=== PATIENT | female | born 1995 | race Caucasian/White ===

== ENCOUNTER 2016-06-10 22:11 | Emergency (ER) | payer OTHER ==
[2016-06-10 22:17] VITALS: BP 123/67
[2016-06-10] MEDS ORDERED: Acetaminophen 325 MG Tab PO ONE (22:28)
[2016-06-10] MEDS ORDERED: Ketorolac 60 MG/2 ML SDV IM ONE (22:28)
[2016-06-10] MEDS ORDERED: Ondansetron 4 MG Tab.DIS PO ONE (22:28)
--- NOTE | 2016-06-10 23:44 | EDM.PDOC ---
ED HPI GENERAL MEDICAL PROBLEM - General Chief Complaint: General Stated Complaint: concussion, headache, neck pain Time Seen by Provider: 06/10/16 22:27 Source of Information: Reports: Patient History Limitations: Reports: No limitations - History of Present Illness INITIAL COMMENTS - FREE TEXT/NARRATIVE: Fell at [address]200 [address] this AM. Hit the back of her head against pickup bed. No LOC. Has LARKIN and nausea No neuro changes. Onset: today, sudden Duration: Hour(s):, Constant Location: Reports: head Quality: Reports: Throbbing Severity: moderate Worsens with: Reports: Movement Associated Symptoms: Reports: headaches, nausea/vomiting Treatments VP PLATFORMS: Reports: NSAIDS Headache Pain Score (Numeric/FACES): 7 - Related Data Allergies Allergy/AdvReac Type Severity Reaction Status Date / Time Penicillins Allergy Hives Verified 06/10/16 22:26 Home Meds: Home Meds Ibuprofen 600 mg PO Q6H PRN 06/10/16 [History] ED ROS GENERAL - Review of Systems Review Of Systems: See Below Constitutional: Reports: no symptoms HEENT: Reports: Other (Pain in posterior scalp) Respiratory: Reports: No Symptoms Cardiovascular: Reports: No symptoms GI/Abdominal: Reports: Nausea, Vomiting Musculoskeletal: Reports: no symptoms Neurological: Reports: Headache ED EXAM, GENERAL - Physical Exam Exam: See Below Exam Limited By: No limitations General Appearance: alert, WD/WN, mild distress Ears: normal canal, normal TMs Throat/Mouth: Normal oropharynx Head: other (tender in posterior scalp) Neck: non-tender Respiratory/Chest: lungs clear Cardiovascular: regular rate, rhythm GI/Abdominal: non tender Extremities: normal inspection Neurological: alert, oriented, CN II-XII intact, no motor/sensory deficits Psychiatric: normal affect, normal mood Course - Vital Signs Last Recorded V/S: Last Vital Signs Temp 37.6 C 06/10/16 22:16 Pulse 106 H 06/10/16 22:16 Resp 18 06/10/16 22:16 BP 123/67 06/10/16 22:16 Pulse Ox 100 06/10/16 22:16 - Orders/Labs/Meds Orders: Active Orders 24 hr Category Date Time Status Head wo Cont [CT] Stat Exams 06/10/16 22:27 Taken Meds: Medications Discontinued Medications Generic Name Dose Route Start Last Admin Trade Name Freq PRN Reason Stop Dose Admin Acetaminophen 650 mg 06/10/16 22:28 06/10/16 23:23 Tylenol PO 06/10/16 22:29 650 mg NOW ONE Administration Ketorolac Tromethamine 60 mg 06/10/16 22:28 Toradol IM 06/10/16 22:29 ONETIME ONE Ondansetron HCl 4 mg 06/10/16 22:28 06/10/16 23:22 Zofran Odt PO 06/10/16 22:29 4 mg ONETIME ONE Administration - Re-Assessments/Exams Free Text/Narrative Re-Assessment/Exam: 06/10/16 23:42 CT: Negative 06/10/16 23:43 Pt given Toradol IM and PO Zofran Departure - Departure Time of Disposition: 23:45 Disposition: Home, Self-Care 01 Clinical Impression: Concussion Qualifiers: Encounter type: initial encounter Loss of consciousness presence/duration: without LOC Qualified Code(s): S06.0X0A - Concussion without loss of consciousness, initial encounter Instructions: Head Injury, Adult, Post-Concussion Syndrome, Concussion, Adult, Concussion, Adult, [id number], Post-Concussion Syndrome, [id number] Forms: ED Department Discharge Additional Instructions: Follow up in clinic Zofran as needed Tylenol or Motrin as needed - My Orders Last 24 Hours: My Active Orders 06/10/16 22:27 Head wo Cont [CT] Stat - Assessment/Plan Last 24 Hours: My Active Orders 06/10/16 22:27 Head wo Cont [CT] Stat
== END 2016-06-10 23:57 | disposition home or self-care (01) ==
LOC: LL.ED 22:11
DX: S06.0X0A Concussion without loss of consciousness, initial encounter (principal); Z88.0 Allergy status to penicillin; W22.8XXA Striking against or struck by other objects, initial encounter
CPT/HCPCS: 70450; 96372; 99284; A9270; J1885